=== PATIENT | male | born 2000 | race Caucasian/White ===

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

== ENCOUNTER 2022-04-03 16:54 | Emergency (ER) | payer MEDICAID, OTHER ==
[~2022-04-03] VITALS: Ht 170.2 cm; Wt 65.0 kg
[~2022-04-03 16:54] MED LIST changes: -ALBU6.7H INH; +ALBU6.7H14 INH; +HYDR-4383 PO; -HYDR-569 PO
[2022-04-03 17:38] VITALS: BP 136/71
== END 2022-04-03 19:02 | disposition home or self-care (01) ==
LOC: ER 16:55
DX: S63.91XA Sprain of unspecified part of right wrist and hand, initial encounter (principal); X50.1XXA Overexertion from prolonged static or awkward postures, initial encounter; Y93.89 Activity, other specified; Y92.89 Other specified places as the place of occurrence of the external cause; Y99.8 Other external cause status
CPT/HCPCS: 29125; 73130; 99283; A6449